=== PATIENT | male | born 1955 | race Caucasian/White ===

== ENCOUNTER 2016-09-13 21:45 | Emergency (ER) | payer BC ==
[2016-09-13 22:17] VITALS: BP 149/95
[2016-09-13] MEDS ORDERED: Tamsulosin 0.4 MG Cap.ER PO ONE (22:20)
--- NOTE | 2016-09-13 22:26 | EDM.PDOC ---
ED HPI GENERAL MEDICAL PROBLEM - General Chief Complaint: General Stated Complaint: unable to void Time Seen by Provider: 09/13/16 22:07 Source of Information: Reports: Patient, Family () History Limitations: Reports: No limitations - History of Present Illness INITIAL COMMENTS - FREE TEXT/NARRATIVE: Patient presents with painful urine retention following general anesthesia and foot surgery this morning. He hasn't passed urine all day and is quite uncomfortable. He has some chronic problems voiding and had an occurrence similar to this 4 years ago following surgery on his back. At that time he was catheterized and took Flomax for about six months, which his remembers as helping. No other problems currently but says he had a temp of 99 this morning before his surgery and still about that. - Related Data Allergies Allergy/AdvReac Type Severity Reaction Status Date / Time No Known Drug Allergies Allergy none Verified 09/13/16 22:03 ED ROS GENERAL - Review of Systems Review Of Systems: See Below Constitutional: Denies: chills, malaise, weakness HEENT: Denies: Throat pain, Vision change Respiratory: Denies: Shortness of Breath, Cough Cardiovascular: Denies: Chest pain, Syncope GI/Abdominal: Denies: Abdominal pain, Diarrhea, Vomiting : Reports: urinary retention. Denies: dysuria, flank pain Skin: Denies: cyanosis, jaundice, mottled, pallor, diaphoresis Neurological: Denies: Confusion, Dizziness, Headache Psychiatric: Denies: Agitation, Anxiety, Confusion ED EXAM, GENERAL - Physical Exam Exam: See Below Exam Limited By: No limitations General Appearance: alert, WD/WN, no apparent distress Eye Exam: bilateral eye: EOMI, normal inspection, PERRL Ears: normal external exam Nose: normal inspection, no blood Throat/Mouth: Normal lips, Normal voice, No airway compromise Head: atraumatic, normocephalic Respiratory/Chest: no respiratory distress, lungs clear, normal breath sounds Cardiovascular: regular rate, rhythm, no murmur GI/Abdominal: soft, non tender, no organomegaly Back Exam: No: CVA tenderness (L), CVA tenderness (R) Extremities: normal range of motion, no pedal edema Neurological: alert, oriented, normal cognition, no motor/sensory deficits Psychiatric: normal affect, normal mood Skin Exam: Warm, Dry, Intact, Normal color, No rash Course - Vital Signs Last Recorded V/S: Last Vital Signs Temp 99.1 F 09/13/16 22:06 Pulse 80 09/13/16 22:06 Resp 16 09/13/16 22:06 BP 149/95 H 09/13/16 22:06 Pulse Ox 96 09/13/16 22:06 - Orders/Labs/Meds Orders: Active Orders 24 hr Category Date Time Status Reed Catheter Insertion [Insert Urinary Catheter] [OM. Care 09/13/16 22:15 Ordered PC] Q24H Urinary Catheter Assessment [RC] ASDIRECTED Care 09/13/16 22:05 Active Tamsulosin [Flomax] Med 09/13/16 22:20 Once 0.4 mg PO ONETIME ONE Labs: Laboratory Tests 09/13/16 Range/Units 21:55 Specimen Type Urinfol Urine Color Yellow (YELLOW) Urine Appearance Clear (CLEAR) Urine pH 7.0 (5.0-9.0) Ur Specific [place] 1.015 (1.005-1.030) Urine Protein Negative (NEGATIVE) mg/dL Urine Glucose (UA) 250 H (NEGATIVE) mg/dL Urine Ketones Negative (NEGATIVE) mg/dL Urine Occult Blood Negative (NEGATIVE) Urine Nitrite Negative (NEGATIVE) Urine Bilirubin Negative (NEGATIVE) Urine Urobilinogen 0.2 (0.2-1.0) E.U./dL Ur Leukocyte Esterase Negative (NEGATIVE) Urine RBC 0-5 /HPF Urine WBC Not seen /HPF - Re-Assessments/Exams Free Text/Narrative Re-Assessment/Exam: 09/13/16 22:30 Urine glucose is high today so checked a bedside glucose at 135. UA otherwise normal. 1350 cc of urine was removed after placing a reed catheter. Patient expressed significant relief. Discussed Flomax use and he would like to try it again since it helped last time. Will follow up with his PCP in the next day or two. Departure - Departure Time of Disposition: 22:38 Disposition: Home, Self-Care 01 Condition: good Clinical Impression: Acute retention of urine Forms: ED Department Discharge Additional Instructions: 1. Take the Flomax daily as directed. 2. Follow up with your PCP in a couple days for check on, or removal of the reed catheter. Call your PCP tomorrow morning to see when she would like you to come in for this. 3. Return to ER if needed. - My Orders Last 24 Hours: My Active Orders 09/13/16 22:05 Urinary Catheter Assessment [RC] ASDIRECTED 09/13/16 22:15 Reed Catheter Insertion [Insert Urinary Catheter] [OM.PC] Q24H 09/13/16 22:20 Tamsulosin [Flomax] 0.4 mg PO ONETIME ONE - Assessment/Plan Last 24 Hours: My Active Orders 09/13/16 22:05 Urinary Catheter Assessment [RC] ASDIRECTED 09/13/16 22:15 Reed Catheter Insertion [Insert Urinary Catheter] [OM.PC] Q24H 09/13/16 22:20 Tamsulosin [Flomax] 0.4 mg PO ONETIME ONE
== END 2016-09-13 22:50 | disposition home or self-care (01) ==
LOC: KA.ED 21:45
DX: R33.9 Retention of urine, unspecified (principal)
CPT/HCPCS: 51798; 81001; 82962; 99283; A9270

== ENCOUNTER 2019-07-19 13:49 | Observation (INO) | payer MEDICARE, BC ==
[2019-07-19] MEDS ORDERED: Sodium Chloride 0.9% 10 ML Syringe FLUSH PRN (13:56)
--- NOTE | 2019-07-19 13:57 | EDM.PDOC ---
ED HPI GENERAL MEDICAL PROBLEM - General Chief Complaint: Neurological Problem Stated Complaint: Dizziness Time Seen by Provider: 07/19/19 13:50 Source of Information: Reports: Patient, Family History Limitations: Reports: No Limitations - History of Present Illness INITIAL COMMENTS - FREE TEXT/NARRATIVE: 63 YO WM presents to ER complaining of dizziness and near syncope which has been occurring over the last 2 weeks. Pt reports last week he was driving and he felt lightheaded/dizzy and almost "blacked out". Pt reports associated palpitations but denies shortness of breath or chest pain. Pt with history of COPD and HTN. Pt reports seeing a accounts receivable processor last year for evaluation of his blood pressure. Pt denies headache or nausea/vomiting but states his head feels "full". Pt denies fever/chills, no recent illnesses or URIs. Pt alert and oriented x 4 with GCS-15 without any focal neurological deficits at time of evaluation. Onset: Unknown/Unsure Duration: Week(s): (2) Location: Reports: Head, Chest, Generalized Quality: Reports: Pressure Severity: Mild Improves with: Reports: Rest Worsens with: Reports: Movement Associated Symptoms: Reports: Syncope, Weakness. Denies: Chest Pain, Cough, Diaphoresis, Fever/Chills, Headaches, Nausea/Vomiting, Rash, Seizure, Shortness of Breath - Related Data Allergies Allergy/AdvReac Type Severity Reaction Status Date / Time No Known Drug Allergies Allergy none Verified 09/13/16 22:03 Home Meds: Home Meds Acetaminophen/oxyCODONE [Percocet 325-5 MG] 1 tab PO Q4HR PRN 09/13/16 [History] Budesonide/Formoterol Fumarate [Symbicort 160-4.5 Mcg Inhaler] 1 puff INH DAILY 09/13/16 [History] Ipratropium/Albuterol Sulfate [Iprat-Albut 0.5-3(2.5) MG/3 ML] 3 ml INH QID PRN 09/13/16 [History] Lisinopril/Hydrochlorothiazide [Lisinopril-Hctz 10-12.5 mg Tab] 1 each PO DAILY 09/13/16 [History] Past Medical History HEENT History: Reports: Other (See Below) Other HEENT History: H/O cholesteatoma left ear with tympanoplasty 2014 Cardiovascular History: Reports: Hypertension Respiratory History: Reports: COPD Genitourinary History: Reports: Prostate Disorder Musculoskeletal History: Reports: Back Pain, Chronic Dermatologic History: Reports: Other (See Below) Other Dermatologic History: scattered prednisone bruises to the arms - Past Surgical History Musculoskeletal Surgical History: Reports: Arthroscopic Knee, Other (See Below) Social & Family History - Caffeine Use Caffeine Use: Reports: None ED ROS GENERAL - Review of Systems Review Of Systems: See Below Constitutional: Reports: No Symptoms HEENT: Reports: No Symptoms Respiratory: Reports: No Symptoms Cardiovascular: Reports: Lightheadedness, Palpitations Endocrine: Reports: Fatigue GI/Abdominal: Reports: No Symptoms : Reports: No Symptoms Musculoskeletal: Reports: No Symptoms Skin: Reports: No Symptoms Neurological: Reports: Dizziness, Syncope, Weakness Psychiatric: Reports: No Symptoms Hematologic/Lymphatic: Reports: No Symptoms Immunologic: Reports: No Symptoms ED EXAM, DIZZINESS - Physical Exam Exam: See Below Exam Limited By: No Limitations General Appearance: Alert, WD/WN, No Apparent Distress Eye Exam: Bilateral Eye: EOMI, PERRL Ears: Normal External Exam, Normal Canal, Hearing Grossly Normal, Normal TMs Head Exam: Atraumatic, Normocephalic Neck: Normal Inspection, Supple, Non-Tender, Full Range of Motion Respiratory/Chest: No Respiratory Distress, Lungs Clear, Normal Breath Sounds, No Accessory Muscle Use, Chest Non-Tender Cardiovascular: Normal Peripheral Pulses, Regular Rate, Rhythm, No Edema, No Gallop, No JVD, No Murmur, No Rub GI/Abdominal: Normal Bowel Sounds, Soft, Non-Tender, No Organomegaly, No Distention, No Abnormal Bruit, No Mass Neurological: Alert, Normal Mood/Affect, Normal Dorsiflexion, CN II-XII Intact, Normal Plantar Flexion, Normal Gait, Normal Reflexes, No Motor/Sensory Deficits , Oriented x 3 Back Exam: Normal Inspection, Full Range of Motion, NT Extremities: Normal Inspection, Normal Range of Motion, Non-Tender, No Pedal Edema, Normal Capillary Refill Psychiatric: Normal Affect, Normal Mood Skin Exam: Warm, Dry, Intact, Normal Color, No Rash EKG INTERPRETATION EKG Date: 07/19/19 Course - Orders/Labs/Meds Orders: Active Orders 24 hr Category Date Time Status Cardiac Monitoring [RC] . DIRECTED Care 07/19/19 14:07 Active EKG Documentation Completion [RC] ASDIRECTED Care 07/19/19 13:56 Active Orthostatic Vital Signs [RC] ASDIRECTED Care 07/19/19 14:07 Active Peripheral IV Care [RC] . DIRECTED Care 07/19/19 13:56 Active Sodium Chloride 0.9% [Saline Flush] Med 07/19/19 13:56 Active 10 ml FLUSH Q8HR PRN Peripheral IV Insertion Adult [OM.PC] Routine Oth 07/19/19 13:56 Ordered EKG 12 Lead [EK] Routine Ther 07/19/19 13:56 Ordered Medication Orders Sodium Chloride (Saline Flush) 10 ml FLUSH Q8HR PRN PRN Reason: keep vein open Labs: Laboratory Tests 07/19/19 07/19/19 07/19/19 Range/Units 14:00 14:00 14:05 WBC 4.10 L (5.00-10.00) 10^3/uL RBC 4.27 L (4.50-6.00) 10^6/uL Hgb 14.3 (13.0-17.0) g/dL Hct 41.5 (40.0-52.0) % MCV 97.2 H (82.0-92.0) fL MCH 33.5 H (27.0-31.0) pg MCHC 34.5 (32.0-36.0) g/dL RDW 12.5 (11.5-14.5) % Plt Count 198 (150-400) 10^3/uL MPV 8.6 (7.4-10.4) fL Immature Gran % (Auto) 0.2 (0.0-5.0) % Neut % (Auto) 44.7 L (50.0-70.0) % Lymph % (Auto) 42.2 H (20.0-40.0) % [place] % (Auto) 11.2 H (2.0-8.0) % Eos % (Auto) 1.0 (1.0-3.0) % Baso % (Auto) 0.7 (0.0-1.0) % Immature Gran # (Auto) 0.01 (0.00-0.50) 10^3/uL Neut # (Auto) 1.83 L (2.50-7.00) 10^3/uL Lymph # (Auto) 1.73 (1.00-4.00) 10^3/uL [place] # (Auto) 0.46 (0.10-0.80) 10^3/uL Eos # (Auto) 0.04 L (0.10-0.30) 10^3/uL Baso # (Auto) 0.03 (0.00-0.10) 10^3/uL Sodium 140 (136-145) mmol/L Potassium 3.9 (3.3-5.3) mmol/L Chloride 101 (98-115) mmol/L Carbon Dioxide 27.5 (21.0-32.0) mmol/L Anion Gap 15.4 H (5-15) mmol/L BUN 9 (6-25) mg/dL Creatinine 0.75 (0.51-1.17) mg/dL Est Cr Clr Drug Dosing TNP Estimated GFR (MDRD) > 60 mL/min Glucose 85 (75 - 99) mg/dL POC Glucose 90 (74-106) mg/dl Calcium 8.9 (8.7-10.3) mg/dL Total Bilirubin 0.7 (0.2-1.0) mg/dL AST 60 H (15-37) U/L ALT 41 (12-78) U/L Alkaline Phosphatase 61 (46-116) IU/L Creatine Kinase 176 (26-276) U/L CK-MB (CK-2) 1.20 (0.00-4.30) ng/mL Troponin I 0.06 (0.00-0.070) ng/mL Total Protein 7.2 (6.4-8.2) g/dL Albumin 3.63 (3.00-4.80) g/dL Meds: Medications Generic Name Dose Route Start Last Admin Trade Name Freq PRN Reason Stop Dose Admin Sodium Chloride 10 ml 07/19/19 13:56 Saline Flush FLUSH Q8HR PRN keep vein open - Radiology Interpretation Free Text/Narrative:: CXR- mild lower lobe atelectasis CT- NAD; parietal changes due to previous surgery. Departure - Departure Time of Disposition: 15:09 Disposition: Refer to Observation Condition: Fair Clinical Impression: Hypertension Qualifiers: Hypertension type: unspecified Qualified Code(s): I10 - Essential (primary) hypertension Syncope Qualifiers: Encounter type: initial encounter - Discharge Information Referrals: Navarro-Gucci,Ryanne A, MD [Primary Care Provider] - Forms: ED Department Discharge Sepsis Event Note - Focused Exam Date Exam was Performed: 07/19/19 Time Exam was Performed: 15:30 - My Orders Last 24 Hours: My Active Orders 07/19/19 13:56 EKG Documentation Completion [RC] ASDIRECTED Peripheral IV Care [RC] . DIRECTED Sodium Chloride 0.9% [Saline Flush] 10 ml FLUSH Q8HR PRN Peripheral IV Insertion Adult [OM.PC] Routine EKG 12 Lead [EK] Routine 07/19/19 14:07 Cardiac Monitoring [RC] . DIRECTED Orthostatic Vital Signs [RC] ASDIRECTED - Assessment/Plan Last 24 Hours: My Active Orders 07/19/19 13:56 EKG Documentation Completion [RC] ASDIRECTED Peripheral IV Care [RC] . DIRECTED Sodium Chloride 0.9% [Saline Flush] 10 ml FLUSH Q8HR PRN Peripheral IV Insertion Adult [OM.PC] Routine EKG 12 Lead [EK] Routine 07/19/19 14:07 Cardiac Monitoring [RC] . DIRECTED Orthostatic Vital Signs [RC] ASDIRECTED Assessment:: 1. syncope 2. hypertension 3. COPD with left lower lobe atelectasis. Plan: 1. admit to medicine- Dr Ho 2. orders for admission per Dr Ho
--- NOTE | 2019-07-19 14:35 | CT ---
[id number] CT/CT Head Stroke Protocol EXAM: CT Head Stroke Protocol CLINICAL DATA: DIZZY. COMPARISON STUDY: None FINDINGS: No intracranial hemorrhage, extra-axial fluid collection, mass, or acute ischemia. Generalized parenchymal atrophy with scattered areas of nonspecific white matter disease, commonly seen as sequela of chronic microvascular ischemia. There appears to be a blowout within the left parietal scalp. This does not penetrate the inner table. Soft tissue edema involving the left frontal parietal convexity without underlying calvarial fracture. Paranasal sinuses and right mastoid air cells are well aerated and clear. Postsurgical changes of the left mastoid air cells. IMPRESSION: 1. No acute intracranial process. Kenan Moses DO 07/19/19 1971 Thank you for allowing us to participate in the care of your patient.
[2019-07-19 14:42] LABS: ANION GAP 15.4 mmol/L (5-15); CHLORIDE,CL 101 mmol/L (98-115); SODIUM,NA 140 mmol/L (136-145)
[2019-07-19] MEDS ORDERED: Nitroglycerin 0.4 MG Tab.SL SL PRN (18:07)
[2019-07-19] MEDS ORDERED: Labetalol 100 MG/20 ML MDV IVPUSH ONE (18:56)
[2019-07-19] MEDS ORDERED: Albuterol/Ipratropium 3.0-0.5 MG/3 ML Neb Soln INH PRN (19:15)
[2019-07-19] MEDS ORDERED: FLUTICASONE INH SCH (21:00)
[2019-07-19] MEDS ORDERED: SALMETEROL INH SCH (21:00)
[2019-07-19] MEDS ORDERED: Labetalol 100 MG/20 ML MDV IVPUSH PRN (22:59)
[2019-07-20 08:19] LABS: ANION GAP 16.2 mmol/L (5-15); CHLORIDE,CL 104 mmol/L (98-115); SODIUM,NA 143 mmol/L (136-145)
[2019-07-20] MEDS: LISINOPRIL 5 MG PO SCH (08:32)
[2019-07-20] MEDS ORDERED: Lisinopril 5 MG Tab PO ONE (08:41)
[2019-07-20] MEDS ORDERED: Finasteride 5 MG Tab PO SCH (09:00)
[2019-07-20] MEDS ORDERED: Terazosin 5 MG Cap PO SCH (09:00)
[2019-07-20] MEDS ORDERED: Lisinopril 5 MG Tab PO SCH (09:00)
[2019-07-20] MEDS ORDERED: Roflumilast 500 MCG Tab PO SCH (09:00)
[2019-07-20] MEDS ORDERED: TIOTROPIUM PO SCH (09:00)
[2019-07-20] MEDS ORDERED: Tiotropium Inhaler 18 MCG Inhalation Powder Cap Kit of 5 INH SCH (09:00)
[2019-07-20] MEDS: SALMETEROL INH SCH ×2 (09:08→20:47)
[2019-07-20] MEDS: FLUTICASONE INH SCH ×2 (09:08→20:47)
[2019-07-20] MEDS: Nitroglycerin 2% Oint 1 GM UD Packet TOP SCH ×2 (09:14→14:38)
[2019-07-20] MEDS: Sodium Chloride 0.9% 10 ML Syringe FLUSH PRN ×2 (09:17→09:39)
[2019-07-20] MEDS: Labetalol 100 MG/20 ML MDV IV PRN ×2 (09:17→09:46)
--- NOTE | 2019-07-20 09:23 | PCM.HP.2 ---
H&P History of Present Illness - General Date of Service: 07/20/19 Admit Problem/Dx: Admission Diagnosis/Problem Admission Diagnosis/Problem Syncope Source of Information: Patient, Old Records, Provider, RN History Limitations: Reports: No Limitations Headache Pain Score (Numeric/FACES): 4 - Related Data Allergies/Adverse Reactions: Allergies Allergy/AdvReac Type Severity Reaction Status Date / Time No Known Drug Allergies Allergy none Verified 07/19/19 17:16 Home Medications: Home Meds Albuterol [Ventolin HFA] 1 puff INH Q2H 07/19/19 [History] Albuterol/Ipratropium [DuoNeb 3.0-0.5 MG/3 ML] 3 ml INH Q6H PRN 07/19/19 [ History] Finasteride 5 mg PO DAILY 07/19/19 [History] Fluticasone/Salmeterol [Advair 250-50] 1 puff INH BID 07/19/19 [History] Roflumilast [Daliresp] 500 mcg PO DAILY 07/19/19 [History] Terazosin HCl [Terazosin] 5 mg PO DAILY 07/19/19 [History] Tiotropium [place] [Spiriva Respimat] 2 puff INH DAILY 07/19/19 [History] lisinopriL [Lisinopril] 5 mg PO DAILY 07/19/19 [History] Past Medical History HEENT History: Reports: Other (See Below) Other HEENT History: H/O cholesteatoma left ear with tympanoplasty 2014 Cardiovascular History: Reports: Hypertension Respiratory History: Reports: COPD Gastrointestinal History: Reports: GERD Genitourinary History: Reports: Prostate Disorder Musculoskeletal History: Reports: Back Pain, Chronic Dermatologic History: Reports: Other (See Below) Other Dermatologic History: scattered prednisone bruises to the arms - Infectious Disease History Infectious Disease History: Reports: Chicken Pox, Measles, Mumps - Past Surgical History Neurological Surgical History: Reports: Laminectomy, Spinal Fusion Musculoskeletal Surgical History: Reports: Arthroscopic Knee, Other (See Below) Social & Family History - Family History Family Medical History: Noncontributory - Tobacco Use Smoking Status *Q: Former Smoker Years of Tobacco use: 40 Packs/Tins Daily: 2 Used Tobacco, but Quit: Yes Month/Year Tobacco Last Used: 2013 - Caffeine Use Caffeine Use: Reports: Tea - Alcohol Use Days Per Week of Alcohol Use: 7 Number of Drinks Per Day: 3 Total Drinks Per Week: 21 - Recreational Drug Use Recreational Drug Use: No H&P Review of Systems - Review of Systems: Review Of Systems: See Below General: Reports: No Symptoms HEENT: Reports: Other ("back of my eyes hurt", head feels full). Denies: Visual Changes Pulmonary: Denies: Shortness of Breath, Wheezing, Cough, Sputum Cardiovascular: Reports: Blood Pressure Problem, Other (states some pressure in chest. ). Denies: Palpitations, Lightheadedness Gastrointestinal: Reports: No Symptoms Genitourinary: Reports: No Symptoms Musculoskeletal: Reports: No Symptoms Skin: Reports: No Symptoms Psychiatric: Reports: No Symptoms Neurological: Reports: No Symptoms Hematologic/Lymphatic: Reports: No Symptoms Immunologic: Reports: No Symptoms Exam - Exam Exam: See Below - Vital Signs Vital Signs: Last Vital Signs Temp 98.2 F 07/20/19 06:33 Pulse 61 07/20/19 07:08 Resp 20 07/20/19 06:33 BP 154/77 H 07/20/19 08:32 Pulse Ox 97 07/20/19 06:33 Orthostatic Blood Pressure [ 171/86 Standing] Orthostatic Blood Pressure [ 164/96 Sitting] Orthostatic Blood Pressure [ 166/82 Supine] Weight: 167 lb 12.8 oz - Exam Quality Assessment: No: Supplemental Oxygen, DVT Prophylaxis General: Alert, Oriented. No: Mild Distress HEENT: PERRLA, Hearing Intact, Mucosa Moist & [place], Nares Patent, Normal Nasal Septum, Posterior Pharynx Clear, Conjunctiva Clear, EOMI, EACs Clear, TMs Clear Neck: Supple. No: +2 Carotid Pulse wo Bruit, Carotid Bruit, JVD Lungs: Normal Respiratory Effort, Decreased Breath Sounds Cardiovascular: Normal S1, Normal S2. No: Irregular Rhythm, Bradycardia, Tachycardia, Systolic Murmur, Diastolic Murmur GI/Abdominal Exam: Normal Bowel Sounds, Soft (Male) Exam: Deferred Rectal (Males) Exam: Deferred Back Exam: No: CVA Tenderness (L), CVA Tenderness (R) Extremities: No Pedal Edema Peripheral Pulses: 3+: Carotid (L), Carotid (R), 4+: Radial (R), Femoral (L) Skin: Warm, Dry, Intact Neurological: Cranial Nerves Intact, Reflexes Equal Bilateral Neuro Extensive - Mental Status: Alert, Oriented x3, Memory Intact Neuro Extensive - Motor, Sensory, Reflexes: CN II-XII Intact, Normal Gait, Normal Reflexes Psychiatric: Alert, Normal Affect - Patient Data Lab Results Last 24 hrs: Laboratory Results - last 24 hr 07/19/19 07/19/19 07/19/19 Range/Units 14:00 14:00 14:05 WBC 4.10 L (5.00-10.00) 10^3/uL RBC 4.27 L (4.50-6.00) 10^6/uL Hgb 14.3 (13.0-17.0) g/dL Hct 41.5 (40.0-52.0) % MCV 97.2 H (82.0-92.0) fL MCH 33.5 H (27.0-31.0) pg MCHC 34.5 (32.0-36.0) g/dL RDW 12.5 (11.5-14.5) % Plt Count 198 (150-400) 10^3/uL MPV 8.6 (7.4-10.4) fL Immature Gran % (Auto) 0.2 (0.0-5.0) % Neut % (Auto) 44.7 L (50.0-70.0) % Lymph % (Auto) 42.2 H (20.0-40.0) % Hanson % (Auto) 11.2 H (2.0-8.0) % Eos % (Auto) 1.0 (1.0-3.0) % Baso % (Auto) 0.7 (0.0-1.0) % Immature Gran # (Auto) 0.01 (0.00-0.50) 10^3/uL Neut # (Auto) 1.83 L (2.50-7.00) 10^3/uL Lymph # (Auto) 1.73 (1.00-4.00) 10^3/uL Hanson # (Auto) 0.46 (0.10-0.80) 10^3/uL Eos # (Auto) 0.04 L (0.10-0.30) 10^3/uL Baso # (Auto) 0.03 (0.00-0.10) 10^3/uL Sodium 140 (136-145) mmol/L Potassium 3.9 (3.3-5.3) mmol/L Chloride 101 (98-115) mmol/L Carbon Dioxide 27.5 (21.0-32.0) mmol/L Anion Gap 15.4 H (5-15) mmol/L BUN 9 (6-25) mg/dL Creatinine 0.75 (0.51-1.17) mg/dL Est Cr Clr Drug Dosing TNP Estimated GFR (MDRD) > 60 mL/min Glucose 85 (75 - 99) mg/dL POC Glucose 90 (74-106) mg/dl Calcium 8.9 (8.7-10.3) mg/dL Total Bilirubin 0.7 (0.2-1.0) mg/dL AST 60 H (15-37) U/L ALT 41 (12-78) U/L Alkaline Phosphatase 61 (46-116) IU/L Creatine Kinase 176 (26-276) U/L CK-MB (CK-2) 1.20 (0.00-4.30) ng/mL Troponin I 0.06 (0.00-0.070) ng/mL Total Protein 7.2 (6.4-8.2) g/dL Albumin 3.63 (3.00-4.80) g/dL 07/19/19 07/19/19 07/20/19 Range/Units 18:10 21:55 07:13 WBC 4.24 L (5.00-10.00) 10^3/uL RBC 4.27 L (4.50-6.00) 10^6/uL Hgb 14.5 (13.0-17.0) g/dL Hct 41.5 (40.0-52.0) % MCV 97.2 H (82.0-92.0) fL MCH 34.0 H (27.0-31.0) pg MCHC 34.9 (32.0-36.0) g/dL RDW 12.2 (11.5-14.5) % Plt Count 206 (150-400) 10^3/uL MPV 9.1 (7.4-10.4) fL Immature Gran % (Auto) 0.2 (0.0-5.0) % Neut % (Auto) 49.1 L (50.0-70.0) % Lymph % (Auto) 35.8 (20.0-40.0) % Hanson % (Auto) 12.5 H (2.0-8.0) % Eos % (Auto) 1.7 (1.0-3.0) % Baso % (Auto) 0.7 (0.0-1.0) % Immature Gran # (Auto) 0.01 (0.00-0.50) 10^3/uL Neut # (Auto) 2.08 L (2.50-7.00) 10^3/uL Lymph # (Auto) 1.52 (1.00-4.00) 10^3/uL Hanson # (Auto) 0.53 (0.10-0.80) 10^3/uL Eos # (Auto) 0.07 L (0.10-0.30) 10^3/uL Baso # (Auto) 0.03 (0.00-0.10) 10^3/uL Sodium (136-145) mmol/L Potassium (3.3-5.3) mmol/L Chloride (98-115) mmol/L Carbon Dioxide (21.0-32.0) mmol/L Anion Gap (5-15) mmol/L BUN (6-25) mg/dL Creatinine (0.51-1.17) mg/dL Est Cr Clr Drug Dosing Estimated GFR (MDRD) mL/min Glucose (75 - 99) mg/dL POC Glucose (74-106) mg/dl Calcium (8.7-10.3) mg/dL Total Bilirubin (0.2-1.0) mg/dL AST (15-37) U/L ALT (12-78) U/L Alkaline Phosphatase (46-116) IU/L Creatine Kinase (26-276) U/L CK-MB (CK-2) (0.00-4.30) ng/mL Troponin I 0.09 H* 0.08 H* (0.00-0.070) ng/mL Total Protein (6.4-8.2) g/dL Albumin (3.00-4.80) g/dL 07/20/19 Range/Units 07:13 WBC (5.00-10.00) 10^3/uL RBC (4.50-6.00) 10^6/uL Hgb (13.0-17.0) g/dL Hct (40.0-52.0) % MCV (82.0-92.0) fL MCH (27.0-31.0) pg MCHC (32.0-36.0) g/dL RDW (11.5-14.5) % Plt Count (150-400) 10^3/uL MPV (7.4-10.4) fL Immature Gran % (Auto) (0.0-5.0) % Neut % (Auto) (50.0-70.0) % Lymph % (Auto) (20.0-40.0) % Hanson % (Auto) (2.0-8.0) % Eos % (Auto) (1.0-3.0) % Baso % (Auto) (0.0-1.0) % Immature Gran # (Auto) (0.00-0.50) 10^3/uL Neut # (Auto) (2.50-7.00) 10^3/uL Lymph # (Auto) (1.00-4.00) 10^3/uL Hanson # (Auto) (0.10-0.80) 10^3/uL Eos # (Auto) (0.10-0.30) 10^3/uL Baso # (Auto) (0.00-0.10) 10^3/uL Sodium 143 (136-145) mmol/L Potassium 3.6 (3.3-5.3) mmol/L Chloride 104 (98-115) mmol/L Carbon Dioxide 26.4 (21.0-32.0) mmol/L Anion Gap 16.2 H (5-15) mmol/L BUN 8 (6-25) mg/dL Creatinine 0.66 (0.51-1.17) mg/dL Est Cr Clr Drug Dosing 124.93 Estimated GFR (MDRD) > 60 mL/min Glucose 94 (75 - 99) mg/dL POC Glucose (74-106) mg/dl Calcium 9.1 (8.7-10.3) mg/dL Total Bilirubin 1.8 H (0.2-1.0) mg/dL AST 41 H (15-37) U/L ALT 34 (12-78) U/L Alkaline Phosphatase 56 (46-116) IU/L Creatine Kinase (26-276) U/L CK-MB (CK-2) (0.00-4.30) ng/mL Troponin I 0.11 H* (0.00-0.070) ng/mL Total Protein 7.0 (6.4-8.2) g/dL Albumin 3.58 (3.00-4.80) g/dL Result Diagrams: 07/20/19 07:13 07/20/19 07:13 Sepsis Event Note - Evaluation Sepsis Screening Result: No Definite Risk - Focused Exam Vital Signs: Vital Signs Temp Pulse Resp BP BP Pulse Ox 07/20/19 08:32 154/77 H 07/20/19 07:08 61 164/82 H 07/20/19 06:37 62 172/88 H 07/20/19 06:33 98.2 F 103 H 20 157/102 H 97 07/20/19 03:00 97.5 F 71 18 164/89 H 95 07/19/19 22:54 97.9 F 65 18 157/88 H 100 07/19/19 22:00 98.0 F 67 16 172/86 H 97 Date Exam was Performed: 07/21/19 Time Exam was Performed: 08:33 Problem List Initiated/Reviewed/Updated: Yes Orders Last 24hrs: Active Orders 24 hr Category Date Time Status Patient Status [ADT] Routine ADT 07/19/19 15:32 Active Cardiac Monitoring [RC] . DIRECTED Care 07/19/19 14:07 Inactive Cardiac Monitoring [RC] 0300,0700,1100,1500,1900,2300 Care 07/19/19 15:33 Active EKG Documentation Completion [RC] ASDIRECTED Care 07/19/19 13:56 Inactive EKG Documentation Completion [RC] ASDIRECTED Care 07/19/19 18:06 Active EKG Documentation Completion [RC] ASDIRECTED Care 07/20/19 08:39 Active Orthostatic Vital Signs [RC] ASDIRECTED Care 07/19/19 14:07 Inactive Oxygen Therapy [RC] PRN Care 07/19/19 15:32 Active Peripheral IV Care [RC] . DIRECTED Care 07/19/19 13:56 Inactive Up With Assistance [RC] ASDIRECTED Care 07/19/19 15:32 Active VTE/DVT Education [RC] PER UNIT ROUTINE Care 07/19/19 15:32 Active Vital Signs [RC] 0300,0700,1100,1500,1900,2300 Care 07/19/19 15:32 Active 2 Gram Sodium Diet [DIET] Diet 07/19/19 Dinner Active Albuterol/Ipratropium [DuoNeb 3.0-0.5 MG/3 ML] Med 07/19/19 19:15 Active 3 ml INH Q6H PRN Labetalol [Normodyne] Med 07/20/19 08:57 Active 5 mg IV Q30M PRN Labetalol [Normodyne] Med 07/19/19 22:59 Active 5 mg IVPUSH Q2H PRN Nitroglycerin [Nitro-Bid 2%] Med 07/20/19 08:45 Ordered 1 gm TOP Q6H Nitroglycerin [Nitrostat] Med 07/19/19 18:07 Active 0.4 mg SL Q5M PRN Patient's Own Medication [Ptom] Med 07/20/19 09:01 Active 0 each PO DAILY Patient's Own Medication [Ptom] Med 07/20/19 09:00 Active 1 each INH BID Patient's Own Medication [Ptom] Med 07/20/19 09:00 Active 1 each PO DAILY Patient's Own Medication [Ptom] Med 07/20/19 09:00 Active 1 each PO DAILY Patient's Own Medication [Ptom] Med 07/20/19 09:00 Active 1 each PO DAILY Patient's Own Medication [Ptom] Med 07/20/19 09:00 Active 1 each PO DAILY Sodium Chloride 0.9% [Saline Flush] Med 07/19/19 15:32 Active 10 ml FLUSH Q8HR PRN Peripheral IV Insertion Adult [OM.PC] Routine Oth 07/19/19 13:56 Ordered Saline Lock Insert [OM.PC] Routine Oth 07/19/19 15:32 Ordered Resuscitation Status Routine Resus Stat 07/19/19 15:32 Ordered Medication Orders Albuterol/Ipratropium (Duoneb 3.0-0.5 Mg/3 Ml) 3 ml INH Q6H PRN PRN Reason: Shortness of Breath Labetalol HCl (Normodyne) 5 mg IVPUSH Q2H PRN; Protocol PRN Reason: Hypertension Last Admin: 07/20/19 06:38 Dose: 5 mg Labetalol HCl (Normodyne) 5 mg IV Q30M PRN PRN Reason: Hypertension Nitroglycerin (Nitrostat) 0.4 mg SL Q5M PRN PRN Reason: Chest Pain Last Admin: 07/19/19 18:15 Dose: 0.4 mg Nitroglycerin (Nitro-Bid 2%) 0 gm TOP Q6H NACHO Finasteride 5 Mg Tab (- Ptom) 1 each PO DAILY NACHO Terazosin 5 Mg Cap - (Ptom) 1 each PO DAILY NACH[facility] Lisinopril 5 Mg Tab (- Ptom) 1 each PO DAILY NACHO Daliresp ( Roflumilast) 500 Mcg Tab - Ptom 1 each PO DAILY NACHO Fluticasone/Salmeterol 250/50mcg Inhaler - Ptom 1 each INH BID NACHO Spiriva Respimat ( Tiotropium) 2.5mcg/Actuation - Ptom 0 each PO DAILY NACHO Sodium Chloride (Saline Flush) 10 ml FLUSH Q8HR PRN PRN Reason: keep vein open Assessment/Plan Comment:: History of present illness Orlando is a 63-year-old male that was admitted into observation due to presyncope episodes. Patient came to the ED initially complaining of dizziness and near syncope on and off ~2 weeks. Pt denotes last week he was driving and he felt lightheaded/dizzy and almost "blacked out". Pt reports associated palpitations but denies shortness of breath or chest pain. Pt with history of COPD and HTN. Pt reports he saw a hoop expander last year for evaluation of his HTN. Patient does have a history of COPD and followed closely by pulmonology. Home blood pressure medicine 5 mg lisinopril. Patient does drinks (~4.5 oz/day ) "hard whiskeys per night" ED Eval/PE Denied headache or nausea/vomiting/fever/chills. Head felt "full" A&O GCS-15, No focal neurological deficits CXR: No acute intracranial process, clear sinuses EKG; NSR no ST depression or elevation Troponin, 0.09 Creatinine, normal RM 125 Primary/pertinent hospital problems Non-STEMI, suspect demand type II in the setting of uncontrolled HTN Hypertension, not optimized, symptomatic, suspect concomitant white-coat syndrome component HFpEF; grade 1 diastolic, left 65%, ACEI EtOH abuse, lorazapam, assess GGT Chronic stable problems COPD, stable BPH, hytrin MSK, thoracic back pain, cervical Disposition/overall plan --Telemetry --Increase lisinopril to 10mg daily (from 5mg) --Suspect primay/essential with concomitant white-coat syndrome component. Automated BP x3, with patient in room alone with no other distractions, record avg. --Renal US, outpatient, ordered in [facility] --ASA chew, add lovenox. --Bladder scan after void, 2/2 BPH --Assess TSH --Assess GGT --Nitro Paste, --Labetalol IV until asymptomatic threshold, parameters adjusted. --Monitor troponin, --Lorazapam for anxiety/ETOH withdrawal prop. --Monitor for any end-organ sequela --Pharmacy c/s to determine if any 3A4 substrate interaction may be causing his HTN with his Advair Full code - Mortality Measure Prognosis:: Good
[2019-07-20] MEDS: DALIRESP 500 MCG PO SCH (09:26)
[2019-07-20] MEDS: Finasteride 5 MG Tab - PTOM PO SCH (09:26)
[2019-07-20] MEDS: TERAZOSIN 5 MG PO SCH (09:27)
[2019-07-20] MEDS: SPIRIVA RESPIMAT PO SCH (09:35)
[2019-07-20] MEDS ORDERED: Aspirin 81 MG Tab.Chew PO ONE (09:52)
[2019-07-20] MEDS: Acetaminophen 325 MG Tab PO PRN ×2 (10:11→20:45)
[2019-07-20] MEDS: LORazepam 0.5 MG Tab PO SCH ×2 (10:12→20:45)
[2019-07-20] MEDS: Enoxaparin 100 MG/1 ML Syringe SUBCUT SCH ×2 (10:48→21:51)
[2019-07-20] MEDS ORDERED: Labetalol 100 MG/20 ML MDV IVPUSH PRN (18:23)
[2019-07-20] MEDS ORDERED: Lisinopril 10 MG Tab PO ONE (21:00)
[2019-07-21] MEDS ORDERED: Lisinopril 20 MG Tab PO SCH ×2 (07:00)
[2019-07-21] MEDS: LORazepam 0.5 MG Tab PO SCH (08:08)
[2019-07-21] MEDS: TERAZOSIN 5 MG PO SCH (08:08)
[2019-07-21] MEDS: DALIRESP 500 MCG PO SCH (08:08)
[2019-07-21] MEDS: SPIRIVA RESPIMAT PO SCH (08:09)
[2019-07-21] MEDS: Finasteride 5 MG Tab - PTOM PO SCH (08:09)
[2019-07-21] MEDS: FLUTICASONE INH SCH (08:10)
[2019-07-21] MEDS: SALMETEROL INH SCH (08:10)
[2019-07-21] MEDS ORDERED: Lisinopril 10 MG Tab PO SCH (09:00)
[2019-07-21 10:45] VITALS: BP 139/83; PULSE 103
[2019-07-21] MEDS: Enoxaparin 100 MG/1 ML Syringe SUBCUT SCH (10:47)
--- NOTE | 2019-07-21 11:15 | PCM.DCSUM1 ---
Discharge Summary - Hospital Course Free Text/Narrative:: Date of admission: 07/19/19 Date of discharge: 07/21/19 Admission diagnoses: Recurrent presyncope Hypertension, with hypertensive urgency HFpEF Suspected cerebral microvascular disease Alcohol dependence Elevated AST Macrocytosis Neutropenia, mild COPD BPH Chronic cervical and thoracic back pain Discharge diagnoses: Recurrent presyncope, improved Hypertension, with hypertensive urgency resolved NSTEMI, likely demand ischemia due to above HFpEF Suspected cerebral microvascular disease Alcohol dependence Elevated AST Macrocytosis Neutropenia, mild COPD BPH Chronic cervical and thoracic back pain Consultations: None Procedures: None Hospital course: Mr. White is a 63-year-old male with a history notable for HTN, severe COPD, and chronic alcohol dependence who presented to the [facility] ED with complaints of headache, dizziness and near syncope on and off ~2 weeks. He noted a prior episode while he was driving when he felt lightheaded/dizzy and almost "blacked out". Pt reports associated palpitations, but denies shortness of breath or chest pain. Work-up in the ED was notable for SBPs in the 180s, no notable abnormalities on exam, labs without acute findings, EKG NSR without ST segment changes, CXR without acute process, and CT head without acute findings. He was admitted to observation status for further monitoring and work-up. Shortly after admission, he reported an episode of chest tightness along with ongoing headache. Troponin and EKG repeated, notable for mild elevation in troponin to 0.09, which later downtrended after maximum of 0.11. He had no recurrent episodes of chest pain and the elevation was felt to be related to demand ischemia in the setting of uncontrolled HTN. His lisinopril was increased and he had improved control with as needed nitroglycerin and labetalol. In the last 24hrs of his stay, he had consistent SBPs in the <140s. No abnormalities noted on telemetry throughout his stay. He was continued on his other outpatient medications for COPD and BPH as prescribed. No other complications arose during his stay and with his improved BP control and symptomatic improvement/resolution, he was deemed ready for discharge. Discharge and follow-up recommendations: - Discharge to home - Medication changes at discharge: - Increase lisinopril to 20mg p daily - Follow-up with PCP BERT Kincaid, at [facility] next week; patient instructed to call Tuesday07/23/19 to schedule appointment - Recommend repeat BMP at follow-up to assess renal function and electrolytes after lisinopril increase - Recommend outpatient carotid US to further evaluate for additional etiology of presyncope and microvascular disease noted on CT head - Recommend outpatient renal US to further evaluate for additional evaluation for secondary hypertension, as was previously ordered - Consider addition of acid reduction medication for patient's complaint of intermittent sore throat and heartburn; patient declined starting at discharge - Encourage cutting back on alcohol use - Encourage re-evaluation of pulmonary status and follow-up with pulmonology for ongoing management of severe COPD - Discharge Data Discharge Date: 07/21/19 Discharge Disposition: Home, Self-Care 01 Condition: Good - Referral to Home Health Primary Care Physician: Antonio Bianchi NP - Patient Instructions Diet: Heart Healthy Diet Diet, Other: Encourage water intake, Limit alcohol intake Activity: As Tolerated Notify Provider of: Fever, Increased Pain, Nausea and/or Vomiting - Discharge Plan *PRESCRIPTION DRUG MONITORING PROGRAM REVIEWED*: Not Applicable *COPY OF PRESCRIPTION DRUG MONITORING REPORT IN PATIENT PADMAJA: Not Applicable Prescriptions/Med Rec: lisinopriL [Prinivil] 20 mg PO 0700 #30 tablet Home Medications: Home Meds Albuterol [Ventolin HFA] 1 puff INH Q2H 07/19/19 [History] Albuterol/Ipratropium [DuoNeb 3.0-0.5 MG/3 ML] 3 ml INH Q6H PRN 07/19/19 [ History] Finasteride 5 mg PO DAILY 07/19/19 [History] Fluticasone/Salmeterol [Advair 250-50] 1 puff INH BID 07/19/19 [History] Roflumilast [Daliresp] 500 mcg PO DAILY 07/19/19 [History] Terazosin HCl [Terazosin] 5 mg PO DAILY 07/19/19 [History] Tiotropium [place] [Spiriva Respimat] 2 puff INH DAILY 07/19/19 [History] lisinopriL [Prinivil] 20 mg PO 0700 #30 tablet 07/21/19 [Rx] Referrals: Carrie Farley, RADIOLOGY TRANSPORTER [Nurse Practitioner] - (call the [facility] on Tuesday to schedule an appointment that week) - Discharge Summary/Plan Comment DC Time >30 min.: Yes - General Info Date of Service: 07/21/19 Subjective Update: Mr. White reports overall feeling well this morning. Some intermittent headache at times, but improved from prior. Denies any recurrent chest pain in the last >24hrs. Eating, voiding, and ambulating without difficulty. Reports chronic heartburn and intermittent sore throat, which has been relieved with esomeprazole successfully in the past. - Patient Data Vitals - Most Recent: Last Vital Signs Temp 36.4 C 07/21/19 10:44 Pulse 103 H 07/21/19 10:44 Resp 18 07/21/19 10:44 BP 139/83 07/21/19 10:44 Pulse Ox 97 07/21/19 10:44 Orthostatic Blood Pressure [ 171/86 Standing] Orthostatic Blood Pressure [ 164/96 Sitting] Orthostatic Blood Pressure [ 166/82 Supine] Weight - Most Recent: 76.113 kg I&O - Last 24 hours: Intake & Output 07/20/19 07/21/19 07/21/19 22:59 06:59 14:59 Intake Total 600 200 Balance 600 200 Lab Results - Last 24 hrs: Laboratory Results - last 24 hr 07/20/19 07/20/19 Range/Units 07:13 15:10 GGT 44 (9-64) U/L Troponin I 0.09 H* (0.00-0.070) ng/mL Med Orders - Current: Current Medications Acetaminophen (Tylenol) 650 mg PO Q4H PRN PRN Reason: Pain Last Admin: 07/20/19 20:45 Dose: 650 mg Albuterol/Ipratropium (Duoneb 3.0-0.5 Mg/3 Ml) 3 ml INH Q6H PRN PRN Reason: Shortness of Breath Enoxaparin Sodium (Lovenox) 75 mg SUBCUT Q12H [facility] Last Admin: 07/21/19 10:47 Dose: 75 mg Labetalol HCl (Normodyne) 5 mg IVPUSH Q2H PRN; Protocol PRN Reason: Hypertension Lisinopril (Prinivil) 20 mg PO 0700 [facility] Last Admin: 07/21/19 06:36 Dose: 20 mg Lorazepam (Ativan) 1 mg PO BID [facility] Last Admin: 07/21/19 08:08 Dose: 1 mg Finasteride 5 Mg Tab (- Ptom) 1 each PO DAILY [facility] Last Admin: 07/21/19 08:09 Dose: 1 each Terazosin 5 Mg Cap - (Ptom) 1 each PO DAILY [facility] Last Admin: 07/21/19 08:08 Dose: 1 each Daliresp ( Roflumilast) 500 Mcg Tab - Ptom 1 each PO DAILY [facility] Last Admin: 07/21/19 08:08 Dose: 1 each Fluticasone/Salmeterol 250/50mcg Inhaler - Ptom 1 each INH BID [facility] Last Admin: 07/21/19 08:10 Dose: 1 each Spiriva Respimat ( Tiotropium) 2.5mcg/Actuation - Ptom 0 each PO DAILY [facility] Last Admin: 07/21/19 08:09 Dose: 2 each Sodium Chloride (Saline Flush) 10 ml FLUSH Q8HR PRN PRN Reason: keep vein open Last Admin: 07/20/19 09:39 Dose: 10 ml Discontinued Medications Aspirin (Aspirin) 324 mg PO ONETIME ONE Stop: 07/20/19 09:53 Last Admin: 07/20/19 10:47 Dose: 324 mg Finasteride (Proscar) 5 mg PO DAILY [facility] Last Admin: 07/20/19 08:33 Dose: 5 mg Labetalol HCl (Normodyne) 5 mg IVPUSH ONETIME ONE; Protocol Stop: 07/19/19 18:57 Last Admin: 07/19/19 19:26 Dose: 5 mg Labetalol HCl (Normodyne) 5 mg IVPUSH Q2H PRN; Protocol PRN Reason: Hypertension Last Admin: 07/20/19 06:38 Dose: 5 mg Labetalol HCl (Normodyne) 5 mg IV Q30M PRN PRN Reason: Hypertension Last Admin: 07/20/19 09:46 Dose: 5 mg Lisinopril (Prinivil) 5 mg PO DAILY [facility] Last Admin: 07/20/19 08:55 Dose: 5 mg Lisinopril (Prinivil) 5 mg PO ONETIME ONE Stop: 07/20/19 08:42 Last Admin: 07/20/19 09:26 Dose: Not Given Lisinopril (Prinivil) 10 mg PO DAILY [facility] Lisinopril (Prinivil) 10 mg PO ONETIME ONE Stop: 07/20/19 21:01 Last Admin: 07/20/19 20:45 Dose: 10 mg Lisinopril (Prinivil) 20 mg PO DAILY [facility] Nitroglycerin (Nitrostat) 0.4 mg SL Q5M PRN PRN Reason: Chest Pain Last Admin: 07/19/19 18:15 Dose: 0.4 mg Nitroglycerin (Nitro-Bid 2%) 0 gm TOP Q6H [facility] Last Admin: 07/20/19 14:38 Dose: 1 gm Fluticasone/Salmeterol 250/50mcg Inhaler #Patient's Own# 1 puff INH BID [facility] Last Admin: 07/19/19 21:58 Dose: 1 puff Tiotropium (Spiriva Respimat) 2.5mcg/Actuation #Patients Own# 0 each PO DAILY [facility] Last Admin: 07/20/19 09:30 Dose: Not Given Lisinopril 5 Mg Tab (- Ptom) 1 each PO DAILY [facility] Last Admin: 07/20/19 08:32 Dose: 1 each Roflumilast (Daliresp) 500 mcg PO DAILY [facility] Last Admin: 07/20/19 08:33 Dose: 500 mcg Sodium Chloride (Saline Flush) 10 ml FLUSH Q8HR PRN PRN Reason: keep vein open Terazosin HCl (Hytrin) 5 mg PO DAILY [facility] Last Admin: 07/20/19 08:32 Dose: 5 mg Tiotropium [place] (Spiriva Handihaler) 0 mcg INH DAILY [facility] - Exam Physical Findings Comments:: GENERAL: Well-appearing adult appearing older than stated age in no acute distress. HEENT: Normocephalic, atraumatic. Conjunctiva clear. Nares patent without discharge. Mucous membranes moist, posterior pharynx unremarkable. NECK: Supple, no masses. CV: Regular rate and rhythm, no murmurs, rubs, or gallops. No carotid bruits. 2 + radial pulses. PULMONARY: Normal effort, clear to auscultation bilaterally, no wheezes, rales, or rhonchi. ABDOMEN: Positive bowel sounds, soft, nontender, nondistended. EXTREMITIES: No edema, cyanosis, or clubbing. MUSCULOSKELETAL: Moves all extremities well. NEUROLOGICAL: No obvious deficits. DERMATOLOGIC: No rashes or suspicious lesions in exposed areas. PSYCHIATRIC: Alert, interactive, appropriate affect.
== END 2019-07-21 12:45 | disposition home or self-care (01) ==
LOC: KA.ED 13:49 → KA.MS 15:31
PROVIDERS: ADMIT Physician Assistant Medical; ATTEND Family Medicine
DX: I21.4 Non-ST elevation (NSTEMI) myocardial infarction (principal); I16.0 Hypertensive urgency; I11.0 Hypertensive heart disease with heart failure; I50.30 Unspecified diastolic (congestive) heart failure; G89.29 Other chronic pain; M54.2 Cervicalgia; M54.6 Pain in thoracic spine; J44.9 Chronic obstructive pulmonary disease, unspecified; J98.11 Atelectasis; K21.9 Gastro-esophageal reflux disease without esophagitis; R74.0 Nonspecific elevation of levels of transaminase and lactic acid dehydrogenase [LDH]; D75.89 Other specified diseases of blood and blood-forming organs; D70.9 Neutropenia, unspecified; N40.0 Benign prostatic hyperplasia without lower urinary tract symptoms; F10.20 Alcohol dependence, uncomplicated; Y90.9 Presence of alcohol in blood, level not specified; Z87.891 Personal history of nicotine dependence; Z79.899 Other long term (current) drug therapy; Z79.51 Long term (current) use of inhaled steroids
CPT/HCPCS: 36415; 51798; 70450; 71046; 80053; 82550; 82553; 82962; 82977; 84443; 84484; 85025; 93005; 96372; 96374; 96376; 99285; A9270; G0378; J1650; J3490; 99284

== ENCOUNTER 2020-10-31 10:10 | Emergency (ER) | payer MEDICARE, BC ==
[2020-10-31 11:06] LABS: ANION GAP 17.2 mmol/L (5-15); CHLORIDE,CL 97 mmol/L (98-107); SODIUM,NA 132 mmol/L (136-145)
[2020-10-31] MEDS ORDERED: Aspirin 81 MG Tab.Chew ONE (11:12)
--- NOTE | 2020-10-31 11:12 | EDM.PDOC ---
ED HPI GENERAL MEDICAL PROBLEM - General Stated Complaint: syncope Time Seen by Provider: 10/31/20 10:30 Source of Information: Reports: Patient, EMS, Significant Other History Limitations: Reports: No Limitations - History of Present Illness INITIAL COMMENTS - FREE TEXT/NARRATIVE: Patient presents via EMS with report of syncopal episode at his home. He is very sleepy but responsive and appropriate with questions and commands. 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 He was lightheaded and dizzy too. After a couple minutes he drove back home and was sitting on his porch steps visiting with a neighbor when he noticed he wasn't understanding what the aicha was saying. Then he passed out and was incontinent of urine. The neighbor called 911. En route he had some hypotension but that is okay now in ER. He is very sleepy but fully oriented. 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, IV/IO, Oxygen - Related Data Allergies Allergy/AdvReac Type Severity Reaction Status Date / Time No Known Drug Allergies Allergy none Verified 07/19/19 17:16 Home Meds: Home Meds Finasteride 5 mg PO DAILY 07/19/19 [History] Terazosin HCl [Terazosin] 5 mg PO DAILY 07/19/19 [History] lisinopriL [Prinivil] 20 mg PO 0700 #30 tablet 07/21/19 [Rx] Budesonide/Glycopyr/Formoterol [Breztri Aerosphere Inhaler] 2 inh INH BID 10/31/20 [History] Escitalopram Oxalate 10 mg PO DAILY 10/31/20 [History] Omeprazole 20 mg PO DAILY 10/31/20 [History] Past Medical History HEENT History: Reports: Other (See Below) Other HEENT History: H/O cholesteatoma left ear with tympanoplasty 2014 Cardiovascular History: Reports: Hypertension Respiratory History: Reports: COPD Gastrointestinal History: Reports: GERD Genitourinary History: Reports: Prostate Disorder Musculoskeletal History: Reports: Back Pain, Chronic Dermatologic History: Reports: Other (See Below) Other Dermatologic History: scattered prednisone bruises to the arms - Infectious Disease History Infectious Disease History: Reports: Chicken Pox, Measles, Mumps - Past Surgical History Neurological Surgical History: Reports: Laminectomy, Spinal Fusion Musculoskeletal Surgical History: Reports: Arthroscopic Knee, Other (See Below) Social & Family History - Family History Family Medical History: No Pertinent Family History - Caffeine Use Caffeine Use: Reports: Tea ED ROS GENERAL - Review of Systems Review Of Systems: See Below Constitutional: Reports: Weakness. Denies: Fever, Chills, Malaise HEENT: Reports: Vision Change (okay now). Denies: Ear Pain, Throat Pain Respiratory: Denies: Shortness of Breath, Cough Cardiovascular: Reports: Blood Pressure Problem, Lightheadedness, Syncope. Denies: Chest Pain Endocrine: Reports: Fatigue GI/Abdominal: Denies: Abdominal Pain, Nausea, Vomiting : Denies: Dysuria, Flank Pain Musculoskeletal: Denies: Neck Pain, Shoulder Pain, Arm Pain, Back Pain, Hand Pain, Leg Pain Skin: Denies: Cyanosis, Jaundice, Mottled, Pallor, Diaphoresis Neurological: Reports: Dizziness, Syncope. Denies: Confusion, Headache, Seizure, Trouble Speaking, Difficulty Walking Psychiatric: Denies: Agitation, Anxiety, Confusion - Physical Exam Exam: See Below Exam Limited By: No Limitations General Appearance: WD/WN, No Apparent Distress, Other (sleepy but responds normally and appropriately) Eye Exam: Bilateral Eye: EOMI Ears: Normal External Exam, Hearing Grossly Normal Nose: Normal Inspection, No Blood Throat/Mouth: Normal Inspection, Normal Lips, Normal Voice, No Airway Compromise Head Exam: Atraumatic, Normocephalic Neck: Normal Inspection, Full Range of Motion Respiratory/Chest: No Respiratory Distress, Lungs Clear, Decreased Breath Sounds (mildly distant) Cardiovascular: Normal Peripheral Pulses, Regular Rate, Rhythm, No Murmur GI/Abdominal: Normal Bowel Sounds, Soft, Non-Tender, No Organomegaly, No Distention, No Abnormal Bruit Neuro Exam (Abbreviated): Alert, Oriented, CN II-XII Intact, Normal Cognition, No Motor/Sensory Deficits Back Exam: Normal Inspection, Full Range of Motion. No: CVA Tenderness (L), CVA Tenderness (R) Extremities: Normal Inspection, Normal Range of Motion, Non-Tender, No Pedal Edema, Normal Capillary Refill Psychiatric: Normal Affect, Normal Mood Skin Exam: Warm, Dry, Intact, Normal Color, No Rash Course - Vital Signs Last Recorded V/S: Last Vital Signs Temp 96.6 F L 10/31/20 10:24 Pulse 88 10/31/20 13:00 Resp 18 10/31/20 13:00 BP 127/86 10/31/20 13:00 Pulse Ox 95 10/31/20 13:00 - Orders/Labs/Meds Orders: Active Orders 24 hr Category Date Time Status EKG Documentation Completion [RC] ASDIRECTED Care 10/31/20 10:23 Active EKG Documentation Completion [RC] STAT Care 10/31/20 10:21 Active DRUG SCREEN, URINE [URCHEM] Stat Lab 10/31/20 10:49 Ordered TROPONIN I HIGH SENSITIVITY [CHEM] Timed Lab 10/31/20 13:00 Ordered Heparin Sodium/D5W 250 ml Med 10/31/20 11:30 Active IV TITRATE Nitroglycerin [Nitrostat] Med 10/31/20 12:56 Ordered 0.4 mg SL Q5M PRN EKG 12 Lead [EK] Stat Ther 10/31/20 10:21 Ordered Medication Orders Heparin Sodium/Dextrose () 250 mls @ 9.525 mls/hr IV TITRATE NACHO; Protocol Last Admin: 10/31/20 11:51 Dose: 12 units/kg/hr, 9.525 mls/hr Documented by: HERNANDEZ Cosigned by: AMARILIS Nitroglycerin (Nitroglycerin 0.4 Mg Tab.Sl) 0.4 mg SL Q5M PRN PRN Reason: Chest Pain Last Admin: 10/31/20 13:00 Dose: 0.4 mg Documented by: HERNANDEZ Labs: Laboratory Tests 10/31/20 10/31/20 10/31/20 Range/Units 10:00 10:00 10:00 WBC 4.56 L (5.00-10.00) 10^3/uL RBC 3.97 L (4.50-6.00) 10^6/uL Hgb 13.1 (13.0-17.0) g/dL Hct 38.1 L (40.0-52.0) % MCV 96.0 H (82.0-92.0) fL MCH 33.0 H (27.0-31.0) pg MCHC 34.4 (32.0-36.0) g/dL RDW 12.1 (11.5-14.5) % Plt Count 215 (150-400) 10^3/uL MPV 9.2 (7.4-10.4) fL Immature Gran % (Auto) 0.4 (0.0-5.0) % Neut % (Auto) 44.3 L (50.0-70.0) % Lymph % (Auto) 44.5 H (20.0-40.0) % [place] % (Auto) 8.6 H (2.0-8.0) % Eos % (Auto) 1.8 (1.0-3.0) % Baso % (Auto) 0.4 (0.0-1.0) % Neut # (Auto) 2.02 L (2.50-7.00) 10^3/uL Lymph # (Auto) 2.03 (1.00-4.00) 10^3/uL M[place]ick # (Auto) 0.39 (0.10-0.80) 10^3/uL Eos # (Auto) 0.08 L (0.10-0.30) 10^3/uL Baso # (Auto) 0.02 (0.00-0.10) 10^3/uL Immature Gran # (Auto) 0.02 (0.00-0.50) 10^3/uL APTT (22.8-31.4) SEC Sodium 132 L (136-145) mmol/L Potassium 3.4 L (3.5-5.1) mmol/L Chloride 97 L (98-107) mmol/L Carbon Dioxide 21.2 (21.0-32.0) mmol/L Anion Gap 17.2 H (5-15) mmol/L BUN 10 (7-18) mg/dL Creatinine 1.06 (0.51-1.17) mg/dL Est Cr Clr Drug Dosing 77.27 mL/min Estimated GFR (MDRD) > 60 mL/min Glucose 86 (70-140) mg/dL Calcium 7.7 L (8.7-10.3) mg/dL Total Bilirubin 0.7 (0.2-1.0) mg/dL AST 71 H (15-37) U/L ALT 52 (14-63) U/L Alkaline Phosphatase 71 (46-116) U/L Troponin I High Sens 109.400 H* (0-76.000) pg/mL Total Protein 6.7 (6.4-8.2) g/dL Albumin 3.47 (3.40-5.00) g/dL Ethyl Alcohol 115 H (NOT DETECTED) mg/dL 10/31/20 Range/Units 11:34 WBC (5.00-10.00) 10^3/uL RBC (4.50-6.00) 10^6/uL Hgb (13.0-17.0) g/dL Hct (40.0-52.0) % MCV (82.0-92.0) fL MCH (27.0-31.0) pg MCHC (32.0-36.0) g/dL RDW (11.5-14.5) % Plt Count (150-400) 10^3/uL MPV (7.4-10.4) fL Immature Gran % (Auto) (0.0-5.0) % Neut % (Auto) (50.0-70.0) % Lymph % (Auto) (20.0-40.0) % [place]ick % (Auto) (2.0-8.0) % Eos % (Auto) (1.0-3.0) % Baso % (Auto) (0.0-1.0) % Neut # (Auto) (2.50-7.00) 10^3/uL Lymph # (Auto) (1.00-4.00) 10^3/uL [place]ick # (Auto) (0.10-0.80) 10^3/uL Eos # (Auto) (0.10-0.30) 10^3/uL Baso # (Auto) (0.00-0.10) 10^3/uL Immature Gran # (Auto) (0.00-0.50) 10^3/uL APTT 25.6 (22.8-31.4) SEC Sodium (136-145) mmol/L Potassium (3.5-5.1) mmol/L Chloride (98-107) mmol/L Carbon Dioxide (21.0-32.0) mmol/L Anion Gap (5-15) mmol/L BUN (7-18) mg/dL Creatinine (0.51-1.17) mg/dL Est Cr Clr Drug Dosing mL/min Estimated GFR (MDRD) mL/min Glucose (70-140) mg/dL Calcium (8.7-10.3) mg/dL Total Bilirubin (0.2-1.0) mg/dL AST (15-37) U/L ALT (14-63) U/L Alkaline Phosphatase (46-116) U/L Troponin I High Sens (0-76.000) pg/mL Total Protein (6.4-8.2) g/dL Albumin (3.40-5.00) g/dL Ethyl Alcohol (NOT DETECTED) mg/dL Meds: Medications Generic Name Dose Route Start Last Admin Trade Name Freq PRN Reason Stop Dose Admin Heparin Sodium/Dextrose 250 mls @ 9.525 mls/hr 10/31/20 11:30 10/31/20 11:51 IV 12 units/kg/hr TITRATE NACHO 9.525 mls/hr Administration Protocol 12 UNITS/KG/HR Nitroglycerin 0.4 mg 10/31/20 12:56 10/31/20 13:00 Nitroglycerin 0.4 Mg Tab.Sl SL 0.4 mg Q5M PRN Administration Chest Pain Discontinued Medications Generic Name Dose Route Start Last Admin Trade Name Freq PRN Reason Stop Dose Admin Aspirin Confirm 10/31/20 11:12 10/31/20 11:15 Aspirin 81 Mg Tab.Chew Administered 10/31/20 11:13 324 mg Dose Administration 324 mg .ROUTE .STK-MED ONE Aspirin 324 mg 10/31/20 11:18 10/31/20 11:19 Aspirin 81 Mg Tab.Chew PO 10/31/20 11:19 Not Given ONETIME ONE Heparin Sodium (Porcine) 5,000 units 10/31/20 11:17 10/31/20 11:47 Heparin Sodium 5,000 Units/Ml Vial IVPUSH 10/31/20 11:18 5,000 units ONETIME ONE Administration Nitroglycerin Confirm 10/31/20 12:57 10/31/20 13:07 Nitroglycerin 0.4 Mg Tab.Sl Administered 10/31/20 12:58 Not Given Dose 0.4 mg .ROUTE .STK-MED ONE - Re-Assessments/Exams Free Text/Narrative Re-Assessment/Exam: 10/31/20 11:32 Troponin is 109. I discussed with patient and then called [facility] and discussed case with hospitalist, Dr. Sandoval who accepted for transfer but wouldn't be going directly to quality lab technician so wants us to give aspirin and heparin here and hold patient until they call with bed availability, as long as patient remains stable. If worsening we should call them and go to their ER. 10/31/20 11:[address] shows no acute findings. Patient is stable and becoming more alert and awake. He has had a liter of fluids IV. 10/31/20 13:10 Patient started having pain in anterior and lateral chest. Giving nitro now. Heparin is running. I discussed case update with Dr. Sandoval who accepted for immediate transfer to ER since no beds are yet available. Patient is stable but pain 4/10, after nitro 3/10 and giving another dose. 10/31/20 13:13 Second troponin pending. Departure - Departure Time of Disposition: 13:10 Disposition: DC/Tfer to Acute Hospital 02 Condition: Good Clinical Impression: Elevated troponin, Non-ST elevation UT (NSTEMI) Episode of syncope Qualifiers: Encounter type: initial encounter Blindness, sudden Qualifiers: Laterality: bilateral Qualified Code(s): H53.133 - Sudden visual loss, bilateral Blindness temporary Qualifiers: Laterality: bilateral Qualified Code(s): H53.123 - Transient visual loss, bilateral - Discharge Information Referrals: Mayra Farley, IGNITION EXPERT [Primary Care Provider] - Sepsis Event Note (ED) - Evaluation Sepsis Screening Result: No Definite Risk - Focused Exam Vital Signs: Vital Signs Temp Pulse Resp BP BP Pulse Ox 10/31/20 13:00 88 18 127/86 127/86 95 10/31/20 12:45 75 16 135/91 H 95 10/31/20 12:30 80 21 H 152/89 H 96 10/31/20 12:15 76 19 147/68 H 96 10/31/20 12:08 83 20 120/83 98 10/31/20 11:45 78 18 141/85 H 97 10/31/20 11:30 74 19 123/75 96 10/31/20 11:15 80 17 139/79 97 10/31/20 11:00 77 18 124/75 95 10/31/20 10:30 69 17 113/69 97 10/31/20 10:24 96.6 F L 72 19 99/62 93 L 10/31/20 10:15 69 17 98/66 92 L - My Orders Last 24 Hours: My Active Orders 10/31/20 10:21 EKG Documentation Completion [RC] STAT EKG 12 Lead [EK] Stat 10/31/20 10:23 EKG Documentation Completion [RC] ASDIRECTED 10/31/20 10:49 DRUG SCREEN, URINE [URCHEM] Stat 10/31/20 11:30 Heparin Sodium/D5W 250 ml IV TITRATE 10/31/20 12:56 Nitroglycerin [Nitrostat] 0.4 mg SL Q5M PRN 10/31/20 13:00 TROPONIN I HIGH SENSITIVITY [CHEM] Timed - Assessment/Plan Last 24 Hours: My Active Orders 10/31/20 10:21 EKG Documentation Completion [RC] STAT EKG 12 Lead [EK] Stat 10/31/20 10:23 EKG Documentation Completion [RC] ASDIRECTED 10/31/20 10:49 DRUG SCREEN, URINE [URCHEM] Stat 10/31/20 11:30 Heparin Sodium/D5W 250 ml IV TITRATE 10/31/20 12:56 Nitroglycerin [Nitrostat] 0.4 mg SL Q5M PRN 10/31/20 13:00 TROPONIN I HIGH SENSITIVITY [CHEM] Timed
--- NOTE | 2020-10-31 11:15 | CT ---
[id number] CT/CT Head WO IV EXAM: NONCONTRAST HEAD CT INDICATION: SYNCOPAL EPISODE. COMPARISON: July 19, 2019. DISCUSSION: There is mild generalized atrophy. Mild multifocal white matter hypoattenuation is nonspecific, but generally ascribed to chronic small vessel ischemia. No mass effect or midline shift. No acute hemorrhage or extra-axial fluid collection. No acute territorial infarct is identified. Left mastoidectomy bone conduction implant. IMPRESSION: 1. No acute findings. Brandon Corbin MD 10/31/20 [id number] Thank you for allowing us to participate in the care of your patient.
[2020-10-31] MEDS ORDERED: Heparin Sodium 5,000 Units/ML Vial IVPUSH ONE (11:17)
[2020-10-31] MEDS ORDERED: Aspirin 81 MG Tab.Chew PO ONE (11:18)
--- NOTE | 2020-10-31 11:23 | CR ---
[id number] RAD/RAD Chest PA or AP 1V EXAM: RAD Chest PA or AP 1V INDICATION: DIMINISHED LUNG SOUNDS, HISTORY OF COPD. COMPARISON: Multiple priors, most recent from June 2019. DISCUSSION/IMPRESSION: Cardiomediastinal silhouette is normal in size and contour. Linear band of scarring in the right upper lung. No change dating to 2012. Lungs are otherwise clear. No pleural effusion or pneumothorax. Alvaro Caceres MD 10/31/20 1122 Thank you for allowing us to participate in the care of your patient.
[2020-10-31] MEDS ORDERED: Heparin Sodium/D5W 250 ML IV SCH (11:30)
[2020-10-31] MEDS ORDERED: Nitroglycerin 0.4 MG Tab.SL ONE (12:57)
[2020-10-31] MEDS: Nitroglycerin 0.4 MG Tab.SL SL PRN ×2 (13:00→13:13)
[2020-10-31 13:06] VITALS: BP 127/86; PULSE 88
[2020-10-31 13:56] LABS: BARBITURATE SCREEN,URINE NEGATIVE (NEGATIVE); BENZODIAZEPINES SCREEN,URINE NEGATIVE (NEGATIVE); TCA SCREEN,URINE NEGATIVE (NEGATIVE); THC SCREEN,URINE 50 NG/ML NEGATIVE (NEGATIVE)
== END 2020-10-31 13:35 ==
LOC: KA.ED 10:10
DX: R55 Syncope and collapse (principal); I21.4 Non-ST elevation (NSTEMI) myocardial infarction; H53.133 Sudden visual loss, bilateral; H53.123 Transient visual loss, bilateral; I10 Essential (primary) hypertension; K21.9 Gastro-esophageal reflux disease without esophagitis; R79.89 Other specified abnormal findings of blood chemistry; Z79.899 Other long term (current) drug therapy
CPT/HCPCS: 36415; 70450; 71045; 80053; 80305-QW; 80307; 84484; 85025; 85730; 93005; 96365; 96366; 99284; 99285-25; A9270-GY; J1644

== ENCOUNTER 2021-04-14 11:31 | Emergency (ER) | payer MEDICARE, BC ==
--- NOTE | 2021-04-14 11:41 | EDM.PDOC ---
ED HPI GENERAL MEDICAL PROBLEM - General Chief Complaint: Upper Extremity Injury/Pain Stated Complaint: FELL AND HURT LEFT SHOULDER Time Seen by Provider: 04/14/21 11:40 Source of Information: Reports: Patient, Family - History of Present Illness INITIAL COMMENTS - FREE TEXT/NARRATIVE: [place], 65-year-old male, experienced dizziness/weakness with an associated fall from the same ground-level striking his right shoulder/humerus last night. He had discomfort that has persisted and worsened since then. His placed him in a sling and he agreed to transport per private vehicle here for evaluation. States he had significant cardiac work-up in the past secondary of syncope issues with no specific findings. Currently is experiencing treatment including steroid for a rectal cancer that was treated last week with radiation. Denies any any illness or contributing factors to activity nor intake. Is not Covid vaccinated Onset Date: 04/13/21 Duration: Hour(s):, Intermittent Location: Reports: Head, Upper Extremity, Left, Upper Extremity, Right Right Shoulder Pain Score (Numeric/FACES): 10 - Related Data Allergies Allergy/AdvReac Type Severity Reaction Status Date / Time budesonide [From Symbicort] Allergy Rash Verified 04/14/21 11:56 Home Meds: Home Meds Finasteride 5 mg PO DAILY 07/19/19 [History] Terazosin HCl [Terazosin] 5 mg PO BEDTIME 07/19/19 [History] lisinopriL [Prinivil] 20 mg PO 0700 #30 tablet 07/21/19 [Rx] Budesonide/Glycopyr/Formoterol [Breztri Aerosphere Inhaler] 2 inh INH BID 10/31/20 [History] Escitalopram Oxalate 10 mg PO DAILY 10/31/20 [History] Omeprazole 20 mg PO DAILY 10/31/20 [History] Past Medical History HEENT History: Reports: Other (See Below) Other HEENT History: H/O cholesteatoma left ear with tympanoplasty 2014 Cardiovascular History: Reports: Hypertension Respiratory History: Reports: COPD Gastrointestinal History: Reports: GERD Genitourinary History: Reports: Prostate Disorder Musculoskeletal History: Reports: Back Pain, Chronic Oncologic (Cancer) History: Reports: Other (See Below) (rectal) Dermatologic History: Reports: Other (See Below) Other Dermatologic History: scattered prednisone bruises to the arms - Infectious Disease History Infectious Disease History: Reports: Chicken Pox, Measles, Mumps - Past Surgical History Neurological Surgical History: Reports: Laminectomy, Spinal Fusion Musculoskeletal Surgical History: Reports: Arthroscopic Knee, Other (See Below) - Past Imaging History Past Imaging History: Reports: CAT Scan, MRI, Stress Testing, Ultrasound, Xray Social & Family History - Family History Family Medical History: No Pertinent Family History - Caffeine Use Caffeine Use: Reports: Tea ED ROS GENERAL - Review of Systems Review Of Systems: Comprehensive ROS is negative, except as noted in HPI. ED EXAM, GENERAL - Physical Exam Exam: See Below Free Text/Narrative:: Alert, oriented, in mild painful distress. HEENT is negative discharge or deformity. PERRLA no icterus no injection. Neck is soft supple with no lymphadenopathy. Tenderness is noted to the inferior shoulder and proximal humerus to palpation. There is a slight deformity palpable,With increased discomfort. Thorax is clear no wheezes no crackles. Cardiac as an occasional ectopic beat with PAC noted. Abdomen is soft bowel sounds are present No edema to the lower extremities. There is no dysfunction to the left upper extremity. He has sensation and motion to the digits with motion to the wrist but it does induce worsening discomfort at the elbow. He is not able to move against the sling with significant discomfort for any attempted motion of the bicep/tricep muscles. He is left with a sling dependent positioning with pain medication administered. Awaiting orthopedic consult return call. #1 Interpretation EKG Date: 04/14/21 Time: 12:06 Rhythm: NSR Rate (Beats/Min): 69 (PAC's) [place]: Normal P-Wave: Present QRS: Normal ST-T: Normal QT: Normal Comparison: Change From Previous EKG Course - Vital Signs Last Recorded V/S: Last Vital Signs Temp 98.1 F 04/14/21 15:00 Pulse 96 04/14/21 15:00 Resp 20 04/14/21 15:00 BP 137/83 04/14/21 15:00 Pulse Ox 94 L 04/14/21 15:00 - Orders/Labs/Meds Orders: Active Orders 24 hr Category Date Time Status EKG 12 Lead [EK] Stat Ther 04/14/21 11:45 Ordered Labs: Laboratory Tests 04/14/21 04/14/21 Range/Units 11:50 11:50 WBC 6.84 (5.00-10.00) 10^3/uL RBC 3.74 L (4.50-6.00) 10^6/uL Hgb 12.2 L (13.0-17.0) g/dL Hct 35.8 L (40.0-52.0) % MCV 95.7 H (82.0-92.0) fL MCH 32.6 H (27.0-31.0) pg MCHC 34.1 (32.0-36.0) g/dL RDW 14.7 H (11.5-14.5) % Plt Count 206 (150-400) 10^3/uL MPV 8.5 (7.4-10.4) fL Immature Gran % (Auto) 0.4 (0.0-5.0) % Neut % (Auto) 88.4 H (50.0-70.0) % Lymph % (Auto) 5.4 L (20.0-40.0) % [place] % (Auto) 5.8 (2.0-8.0) % Eos % (Auto) 0.0 L (1.0-3.0) % Baso % (Auto) 0.0 (0.0-1.0) % Neut # (Auto) 6.04 (2.50-7.00) 10^3/uL Lymph # (Auto) 0.37 L (1.00-4.00) 10^3/uL [place] # (Auto) 0.40 (0.10-0.80) 10^3/uL Eos # (Auto) 0.00 L (0.10-0.30) 10^3/uL Baso # (Auto) 0.00 (0.00-0.10) 10^3/uL Immature Gran # (Auto) 0.03 (0.00-0.50) 10^3/uL Sodium 135 L (136-145) mmol/L Potassium 3.5 (3.5-5.1) mmol/L Chloride 98 (98-107) mmol/L Carbon Dioxide 27.2 (21.0-32.0) mmol/L Anion Gap 13.3 (5-15) mmol/L BUN 17 (7-18) mg/dL Creatinine 0.64 (0.51-1.17) mg/dL Est Cr Clr Drug Dosing 127.99 mL/min Estimated GFR (MDRD) > 60 mL/min Glucose 115 (70-140) mg/dL Calcium 8.1 L (8.7-10.3) mg/dL Total Bilirubin 1.6 H (0.2-1.0) mg/dL AST 30 (15-37) U/L ALT 35 (14-63) U/L Alkaline Phosphatase 47 (46-116) U/L Total Protein 6.8 (6.4-8.2) g/dL Albumin 3.43 (3.40-5.00) g/dL Meds: Medications Discontinued Medications Generic Name Dose Route Start Last Admin Trade Name Freq PRN Reason Stop Dose Admin Hydromorphone HCl 1 mg 04/14/21 13:46 04/14/21 13:54 Hydromorphone 1 Mg/Ml Syringe IM 04/14/21 13:47 Not Given ONETIME ONE Hydromorphone HCl 1 mg 04/14/21 13:49 04/14/21 13:51 Hydromorphone 1 Mg/Ml Syringe IVPUSH 04/14/21 13:50 1 mg ONETIME ONE Administration Hydromorphone HCl 1 mg 04/14/21 14:33 04/14/21 14:35 Hydromorphone 1 Mg/Ml Syringe IVPUSH 04/14/21 14:34 1 mg ONETIME ONE Administration - Re-Assessments/Exams Free Text/Narrative Re-Assessment/Exam: 04/14/21 12:47 [facility] [phone] will notify us when ortho available to view films. Departure - Departure Time of Disposition: 14:57 Disposition: DC/Tfer to Acute Hospital 02 Condition: Good Clinical Impression: Fracture, humerus closed, shaft Qualifiers: Encounter type: initial encounter Fracture morphology: comminuted Fracture alignment: displaced Laterality: right Qualified Code(s): S42.351A - Displaced comminuted fracture of shaft of humerus, right arm, initial encounter for closed fracture - Discharge Information *PRESCRIPTION DRUG MONITORING PROGRAM REVIEWED*: Not Applicable *COPY OF PRESCRIPTION DRUG MONITORING REPORT IN PATIENT PADMAJA: Not Applicable Referrals: PCP,Unknown [Ordering Only Provider] - Forms: ED Department Discharge, Interfacility Transfer EMTALA Additional Instructions: He will go by private vehicle to the [place] emergency department to undergo further testing. Nothing to eat or drink at this time in the event that they would perform any procedure/reduction this evening. Sepsis Event Note (ED) - Focused Exam Vital Signs: Vital Signs Temp Pulse Resp BP Pulse Ox 04/14/21 15:00 98.1 F 96 20 137/83 94 L 04/14/21 12:00 69 20 154/93 H 97 04/14/21 11:49 99 F 68 20 157/88 H 96 - Problem List & Annotations (1) Fracture, humerus closed, shaft SNOMED Code(s): 35613027 Code(s): S42.309A - UNSP FRACTURE OF SHAFT OF HUMERUS, UNSP ARM, INIT Status: Acute Priority: High Current Visit: Yes Qualifiers: Encounter type: initial encounter Fracture morphology: comminuted Fracture alignment: displaced Laterality: right Qualified Code(s): S42.351A - Displaced comminuted fracture of shaft of humerus, right arm, initial encounter for closed fracture - Problem List Review Problem List Initiated/Reviewed/Updated: Yes - My Orders Last 24 Hours: My Active Orders 04/14/21 11:45 EKG 12 Lead [EK] Stat - Assessment/Plan Last 24 Hours: My Active Orders 04/14/21 11:45 EKG 12 Lead [EK] Stat Plan: He will go by private vehicle to the [place] emergency department to undergo further testing. Nothing to eat or drink at this time in the event that they would perform any procedure/reduction this evening.
[2021-04-14 12:15] LABS: ANION GAP 13.3 mmol/L (5-15); CHLORIDE,CL 98 mmol/L (98-107); SODIUM,NA 135 mmol/L (136-145)
--- NOTE | 2021-04-14 12:32 | CR ---
[id number] RAD/RAD Humerus Right 2V Exam: RAD Humerus Right 2V Indication:PAIN, IMMOBILITY RIGHT HUMERUS. Comparison: 2017. Discussion/Impression: Acute comminuted proximal humerus fracture. Major distal fragment is displaced a shaft width lateral in relation to the proximal fragment. Fracture lines extend into the proximal humeral metaphysis. Alvaro Caceres MD 04/14/21 1371 Thank you for allowing us to participate in the care of your patient.
[2021-04-14] MEDS ORDERED: HYDROmorphone 1 MG/ML Syringe IM ONE (13:46)
[2021-04-14] MEDS ORDERED: HYDROmorphone 1 MG/ML Syringe IVPUSH ONE ×2 (13:49→14:33)
[2021-04-14 15:42] VITALS: BP 137/83; PULSE 96
== END 2021-04-14 15:30 ==
LOC: KA.ED 11:31
DX: S42.351A Displaced comminuted fracture of shaft of humerus, right arm, initial encounter for closed fracture (principal); I10 Essential (primary) hypertension; J44.9 Chronic obstructive pulmonary disease, unspecified; K21.9 Gastro-esophageal reflux disease without esophagitis; I49.1 Atrial premature depolarization; Z88.8 Allergy status to other drugs, medicaments and biological substances; Z79.899 Other long term (current) drug therapy; W18.30XA Fall on same level, unspecified, initial encounter; Y92.009 Unspecified place in unspecified non-institutional (private) residence as the place of occurrence of the external cause
CPT/HCPCS: 36415; 73060-RT; 80053; 85025; 93005; 93010; 96374; 96376; 99284; 99285-25; J1170

== ENCOUNTER 2023-06-02 18:11 | Emergency (ER) | payer MEDICARE, BC ==
[2023-06-02 18:39] LABS: BASOPHILS ABSOLUTE AUTO 0.01 10^3/uL (0.00-0.10); BASOPHILS PERCENT AUTO 0.2 % (0.0-1.0); EOSINOPHILS ABSOLUTE AUTO 0.02 10^3/uL (0.10-0.30); EOSINOPHILS PERCENT AUTO 0.4 % (1.0-3.0); HEMATOCRIT 41.9 % (40.0-52.0); HEMOGLOBIN 14.4 g/dL (13.0-17.0); IMMATURE GRAN ABSOLUTE AUTO 0.01 10^3/uL (0.00-0.50); IMMATURE GRAN PERCENT AUTO 0.2 % (0.0-5.0); LYMPHOCYTES ABSOLUTE AUTO 1.22 10^3/uL (1.00-4.00); MEAN CORPUSCULAR HEMOGLOBIN 33.4 pg (27.0-31.0); MEAN CORPUSCULAR HGB CONC 34.4 g/dL (32.0-36.0); MEAN CORPUSCULAR VOLUME 97.2 fL (82.0-92.0); MEAN PLATELET VOLUME 8.9 fL (7.4-10.4); MONOCYTES PERCENT AUTO 11.3 % (2.0-8.0); NEUTROPHILS ABSOLUTE AUTO 3.45 10^3/uL (2.50-7.00); NEUTROPHILS PERCENT AUTO 64.9 % (50.0-70.0); PLATELET COUNT,PLT 189 10^3/uL (150-400); RED BLOOD CELL COUNT 4.31 10^6/uL (4.50-6.00); RED CELL DISTRIBUTION WIDTH 12.1 % (11.5-14.5); WHITE BLOOD CELL COUNT,WBC 5.31 10^3/uL (5.00-10.00)
[2023-06-02 18:55] LABS: ALBUMIN 4.09 g/dL (3.40-5.00); ANION GAP 15.4 mmol/L (5-15); BILIRUBIN TOTAL 1.5 mg/dL (0.2-1.0); C-REACTIVE PROTEIN 3.86 mg/dL (0.00-0.50); CALCIUM 9.4 mg/dL (8.7-10.3); CARBON DIOXIDE,CO2 28.2 mmol/L (21.0-32.0); CREATININE 0.77 mg/dL (0.51-1.17); EST CRCL DRUG DOSING (CG) 103.58 mL/min; POTASSIUM,K 3.6 mmol/L (3.5-5.1)
[2023-06-02] MEDS ORDERED: Iopamidol 755 Mg/ML 100 ML Bottle IV ONE (19:13)
[2023-06-02] MEDS ORDERED: Sodium Chloride 0.9% 100 ML IV SCH (19:15)
[2023-06-02] MEDS ORDERED: Labetalol 100 MG/20 ML MDV IVPUSH ONE ×2 (19:17→20:09)
[2023-06-02] MEDS: Sodium Chloride 0.9% 10 ML Syringe FLUSH PRN ×4 (19:35→20:50)
[2023-06-02] MEDS ORDERED: HYDROmorphone 1 MG/ML Syringe IVPUSH ONE (19:39)
[2023-06-02] MEDS ORDERED: Acetaminophen/HYDROcodone 325-5 MG Tab PO ONE (20:40)
[2023-06-02] MEDS ORDERED: Ketorolac 30 MG/ML SDV IVPUSH ONE (20:41)
[2023-06-02 22:41] VITALS: BP 165/99; PULSE 70
== END 2023-06-02 21:10 | disposition home or self-care (01) ==
LOC: KA.ED 18:11
DX: R07.81 Pleurodynia (principal); I10 Essential (primary) hypertension; J44.9 Chronic obstructive pulmonary disease, unspecified; K21.9 Gastro-esophageal reflux disease without esophagitis; Z87.891 Personal history of nicotine dependence; Z79.899 Other long term (current) drug therapy
CPT/HCPCS: 36415; 71275; 80053; 83605; 85025; 85379; 86140; 96374; 96375; 96376; 99284; 99284-25; A9270-GY; J1170; J1885; J1921; J3490; Q9967

== ENCOUNTER 2024-10-31 20:03 | Emergency (ER) | payer MEDICARE, BC ==
[2024-10-31] MEDS ORDERED: Sodium Chloride 0.9% 10 ML Syringe FLUSH PRN (20:14)
[2024-10-31 20:43] LABS: BASOPHILS ABSOLUTE AUTO 0.03 10^3/uL (0.00-0.10); BASOPHILS PERCENT AUTO 0.6 % (0.0-1.0); EOSINOPHILS ABSOLUTE AUTO 0.01 10^3/uL (0.10-0.30); EOSINOPHILS PERCENT AUTO 0.2 % (1.0-3.0); IMMATURE GRAN ABSOLUTE AUTO 0.01 10^3/uL (0.00-0.04); IMMATURE GRAN PERCENT AUTO 0.2 % (0.0-0.4); LYMPHOCYTES ABSOLUTE AUTO 0.93 10^3/uL (1.00-4.00); LYMPHOCYTES PERCENT AUTO 18.3 % (20.0-40.0); MEAN CORPUSCULAR HEMOGLOBIN 32.9 pg (27.0-31.0); MEAN CORPUSCULAR VOLUME 94.1 fL (82.0-92.0); MEAN PLATELET VOLUME 8.5 fL (7.4-10.4); MONOCYTES ABSOLUTE AUTO 0.39 10^3/uL (0.10-0.80); MONOCYTES PERCENT AUTO 7.7 % (2.0-8.0); NEUTROPHILS ABSOLUTE AUTO 3.72 10^3/uL (2.50-7.00); PLATELET COUNT,PLT 266 10^3/uL (150-400); RED BLOOD CELL COUNT 4.25 10^6/uL (4.50-6.00); RED CELL DISTRIBUTION WIDTH 12.9 % (11.5-14.5); WHITE BLOOD CELL COUNT,WBC 5.09 10^3/uL (5.00-10.00)
[2024-10-31] MEDS: Nitroglycerin 0.4 MG Tab.SL SL ONE ×2 (20:48→21:37)
[2024-10-31] MEDS: hydrALAZINE 20 MG/ML SDV IVPUSH ONE (20:50)
[2024-10-31] MEDS: Ondansetron 4 MG/2 ML SDV IVPUSH ONE (20:52)
[2024-10-31 20:59] LABS: ALBUMIN 3.61 g/dL (3.40-5.00); ANION GAP 14.8 mmol/L (5-15); BILIRUBIN TOTAL 1.3 mg/dL (0.2-1.0); CARBON DIOXIDE,CO2 27.2 mmol/L (21.0-32.0); CREATININE 0.6 mg/dL (0.51-1.17); EST CRCL DRUG DOSING (CG) 121.67 mL/min; PROTEIN TOTAL,TP 7.3 g/dL (6.4-8.2)
[2024-10-31 21:17] LABS: APPEARANCE,URINE CLEAR (CLEAR); BILIRUBIN,URINE NEGATIVE (NEGATIVE); COLOR,URINE YELLOW (YELLOW); GLUCOSE,URINE NEGATIVE (NEGATIVE); KETONES,URINE TRACE mg/dL (NEGATIVE); LEUKOCYTE ESTERASE,URINE NEGATIVE (NEGATIVE); NITRITE,URINE NEGATIVE (NEGATIVE); OCCULT BLOOD,URINE NEGATIVE (NEGATIVE); PH,URINE 7.5 (5.0-9.0); PROTEIN,URINE 30 mg/dL (NEGATIVE); UROBILINOGEN,URINE 0.2 E.U./dL (0.2-1.0)
[2024-10-31 21:23] LABS: BACTERIA,URINE RARE /HPF (NONE TO FEW); EPITHELIAL CELLS,URINE RARE /LPF; MUCUS,URINE RARE /LPF (NEGATIVE); RBC,URINE 0-5 /HPF (0-5); WBC,URINE 0-5 /HPF (0-5)
[2024-10-31] MEDS: Metoprolol Tartrate 25 MG Tab PO ONE ×2 (21:49→23:31)
[2024-10-31 23:37] VITALS: BP 174/105; PULSE 111
== END 2024-10-31 22:45 ==
LOC: KA.ED 20:03
DX: I21.4 Non-ST elevation (NSTEMI) myocardial infarction (principal); R07.81 Pleurodynia; R55 Syncope and collapse; R79.89 Other specified abnormal findings of blood chemistry; I11.0 Hypertensive heart disease with heart failure; I50.9 Heart failure, unspecified; K21.9 Gastro-esophageal reflux disease without esophagitis; Z79.899 Other long term (current) drug therapy; Z88.8 Allergy status to other drugs, medicaments and biological substances
CPT/HCPCS: 71046; 80053; 81001; 83690; 84484; 85025; 96374; 96375; 99285-25; A9270-GY; J0360; J2405

== ENCOUNTER 2025-05-08 14:10 | Observation (INO) | payer MEDICARE, BC ==
[2025-05-08] MEDS ORDERED: Sodium Chloride 0.9% 10 ML Syringe FLUSH PRN (14:27)
[2025-05-08 14:39] LABS: BASOPHILS ABSOLUTE AUTO 0.01 10^3/uL (0.00-0.10); BASOPHILS PERCENT AUTO 0.2 % (0.0-1.0); EOSINOPHILS ABSOLUTE AUTO 0.03 10^3/uL (0.10-0.30); EOSINOPHILS PERCENT AUTO 0.5 % (1.0-3.0); IMMATURE GRAN ABSOLUTE AUTO 0.01 10^3/uL (0.00-0.04); IMMATURE GRAN PERCENT AUTO 0.2 % (0.0-0.4); LYMPHOCYTES ABSOLUTE AUTO 0.97 10^3/uL (1.00-4.00); LYMPHOCYTES PERCENT AUTO 17.4 % (20.0-40.0); MEAN PLATELET VOLUME 8.3 fL (7.4-10.4); MONOCYTES ABSOLUTE AUTO 0.52 10^3/uL (0.10-0.80); MONOCYTES PERCENT AUTO 9.3 % (2.0-8.0); NEUTROPHILS ABSOLUTE AUTO 4.05 10^3/uL (2.50-7.00); NEUTROPHILS PERCENT AUTO 72.4 % (50.0-70.0); PLATELET COUNT,PLT 222 10^3/uL (150-400); RED BLOOD CELL COUNT 4.07 10^6/uL (4.50-6.00); RED CELL DISTRIBUTION WIDTH 13.2 % (11.5-14.5); WHITE BLOOD CELL COUNT,WBC 5.59 10^3/uL (5.00-10.00)
[2025-05-08 14:55] LABS: ALANINE AMINOTRANSFERASE,ALT 26.0 U/L (14-63); ASPARTATE AMNIOTRANSFERASE,AST 29.0 U/L (15-37); BILIRUBIN TOTAL 0.8 mg/dL (0.2-1.0); BLOOD UREA NITROGEN,BUN 12.0 mg/dL (7-18); CARBON DIOXIDE,CO2 27.5 mmol/L (21.0-32.0); CHLORIDE,CL 94.0 mmol/L (98-107); CREATININE 0.71 mg/dL (0.51-1.17); EST CRCL DRUG DOSING (CG) 102.82 mL/min; GLUCOSE RANDOM 90.0 mg/dL (70-140); POTASSIUM,K 4.0 mmol/L (3.5-5.1); PROTEIN TOTAL,TP 6.9 g/dL (6.4-8.2); SODIUM,NA 131.0 mmol/L (136-145)
[2025-05-08 14:56] LABS: ESTIMATED GFR 100.0 mL/min (>=60)
[2025-05-08] MEDS: Metoprolol Tartrate 5 MG/5 ML SDV IVPUSH ONE (15:02)
[2025-05-08] MEDS: Nitroglycerin 2% Oint 1 GM UD Packet TOP ONE (15:37)
[2025-05-08] MEDS ORDERED: Ondansetron 4 MG Tab.DIS PO PRN (16:34)
[2025-05-08] MEDS: Omeprazole 20 MG Cap.CR PO SCH (20:10)
[2025-05-08] MEDS: Nitroglycerin 0.4 MG Tab.SL SL PRN (21:06)
[2025-05-09] MEDS: hydrALAZINE 20 MG/ML SDV IVPUSH PRN (06:12)
[2025-05-10 12:35] VITALS: BP 104/73; PULSE 81
== END 2025-05-10 11:20 | disposition home or self-care (01) ==
LOC: KA.ED 14:10 → KA.MS 15:45
PROVIDERS: ADMIT Family Medicine; ATTEND Family Medicine
DX: I21.A1 Myocardial infarction type 2 (principal); I16.1 Hypertensive emergency; R51.9 Headache, unspecified; R07.89 Other chest pain; I11.0 Hypertensive heart disease with heart failure; I50.9 Heart failure, unspecified; E78.5 Hyperlipidemia, unspecified; N40.0 Benign prostatic hyperplasia without lower urinary tract symptoms; Z88.8 Allergy status to other drugs, medicaments and biological substances; Z79.82 Long term (current) use of aspirin; Z87.891 Personal history of nicotine dependence; Z79.899 Other long term (current) drug therapy
CPT/HCPCS: 36415; 70450; 71045; 80053; 84484; 85025; 93010; 96361; 96374; 96375; 99223-GT; 99232-GT; 99239-GT; 99284; 99285-25; A9270-GY; G0378; J0360; J0616; J2270; J7030; Q3014